=== PATIENT | female | born 1965 | race Caucasian/White ===

== ENCOUNTER 2022-04-18 17:16 | Emergency (ER) | payer MEDICARE, OTHER ==
[~2022-04-18] VITALS: Ht 167.6 cm; Wt 86.2 kg
--- NOTE | 2022-04-18 17:45 | NUR ---
RECEIVED PT 57 YRS FEMALE CAME BY [facility] FOR PAIN IN LT LEG AND LT FOOT WITH LT LEG SPLENT
[2022-04-18] MEDS ORDERED: ACETAMINOPHEN ES 500 MG TABLET PO ONE (18:00)
[2022-04-18] MEDS ORDERED: ACETAMINOPHEN ES 500 MG TABLET ONE (18:02)
--- NOTE | 2022-04-18 18:10 | NUR ---
X RAY DONE ON LT LEG
--- NOTE | 2022-04-18 18:14 | NUR ---
CALLED [facility] [phone] WILL CALL US BACK.
--- NOTE | 2022-04-18 19:11 | NUR ---
PT REQUEST CALL FRIEND/FAMILY AT UPON DISCHARGE.
[2022-04-18] MEDS ORDERED: ONDANSETRON HCL/PF 4 MG/2 ML VIAL ONE (19:18)
[2022-04-18] MEDS ORDERED: HYDROMORPHONE INJ 2 MG/ML DISP.SYRIN ONE (19:19)
--- NOTE | 2022-04-18 19:25 | NUR ---
hand off HANNY HANNA
[2022-04-18] MEDS ORDERED: IV NS 0.9% 1,000 ML BAG IV ONE (19:30)
[2022-04-18] MEDS ORDERED: HYDROMORPHONE INJ 2 MG/ML DISP.SYRIN IV ONE (19:30)
[2022-04-18] MEDS ORDERED: ONDANSETRON HCL/PF 4 MG/2 ML VIAL IVP ONE (19:30)
--- NOTE | 2022-04-18 20:03 | NUR ---
LESLY GRAVES [phone] VIA [facility] @21:00 - ER
--- NOTE | 2022-04-18 21:03 | NUR ---
REPORT GIVEN TO PETE POLO OF [place]. PATIENT IS BEING P/U BY [facility]
[2022-04-18 21:25] VITALS: BP 106/72
--- NOTE | 2022-04-18 21:25 | NUR ---
TRANSFERRED TO [place] [facility]IA [facility]
== END 2022-04-18 21:27 ==
LOC: ER 17:33
DX: S82.892A Other fracture of left lower leg, initial encounter for closed fracture (principal); Z60.2 Problems related to living alone; W19.XXXA Unspecified fall, initial encounter; Y93.89 Activity, other specified; Y92.89 Other specified places as the place of occurrence of the external cause; Y99.8 Other external cause status
CPT/HCPCS: 99285; 96374; 29515; 96375; 73610 ×2; J1170; J2405; J7030